=== PATIENT | female | born 1955 ===

== ENCOUNTER 2021-11-18 09:57 | Day surgery (SDC) | payer OTHER | END 2021-11-18 14:10 | disposition home or self-care (01) | LOC: AMB-ENDOS 09:57 | PROVIDERS: ATTEND Colon & Rectal Surgery | DX: K57.30 Diverticulosis of large intestine without perforation or abscess without bleeding (principal); K64.4 Residual hemorrhoidal skin tags; Z20.822 Contact with and (suspected) exposure to COVID-19; I10 Essential (primary) hypertension ==